=== PATIENT | female | born 1945 | race Caucasian/White ===

== ENCOUNTER → 2017-08-16 | Outpatient (CLI) | payer MEDICARE, OTHER | LOC: LAB SHORT 15:50 → LAB 15:50 | PROVIDERS: Hospitalist | DX: Z12.4 Encounter for screening for malignant neoplasm of cervix (principal) | CPT/HCPCS: G0145 ==

== ENCOUNTER 2017-11-08 06:52 | Day surgery (SDC) | payer MEDICARE, OTHER ==
[~2017-11-08] VITALS: Ht 165.1 cm; Wt 66.7 kg
[2017-11-08] MEDS ORDERED: LEVSOD125 PO (07:29)
[2017-11-08] MEDS ORDERED: ROSU5 PO (07:30)
[2017-11-08] MEDS ORDERED: RANI150EL (07:30)
[2017-11-08] MEDS ORDERED: Elmiron100 MG (07:30)
== END 2017-11-08 08:52 | disposition home or self-care (01) ==
LOC: ORSCSDS 06:52
PROVIDERS: Student in an Organized Health Care Education/Training Program
PROC: 0DB68ZX Excision of Stomach, Via Natural or Artificial Opening Endoscopic, Diagnostic (ICD-10-PCS; principal; 2017-11-08 08:00)
PROC: 0DB58ZX Excision of Esophagus, Via Natural or Artificial Opening Endoscopic, Diagnostic (ICD-10-PCS; principal; 2017-11-08 08:00)
DX: K21.9 Gastro-esophageal reflux disease without esophagitis (principal); K31.7 Polyp of stomach and duodenum; K29.70 Gastritis, unspecified, without bleeding; K44.9 Diaphragmatic hernia without obstruction or gangrene; R13.10 Dysphagia, unspecified; E03.9 Hypothyroidism, unspecified; E78.5 Hyperlipidemia, unspecified; Z87.891 Personal history of nicotine dependence; M79.7 Fibromyalgia; Z79.899 Other long term (current) drug therapy
CPT/HCPCS: 88305; 88342; J0330; J1980; J2405; J7120

== ENCOUNTER 2019-12-11 08:41 | Day surgery (SDC) | payer MEDICARE, OTHER ==
[~2019-12-11] VITALS: Ht 165.1 cm; Wt 68.5 kg
[~2019-12-11 08:41] MED LIST: ESTRADIOL0.5 MG PO; Elmiron100 MG; FENO145 PO; FLONASE ALLERG9.9 M2; LEVO-T100 MCG PO; LEVSOD125 PO; RANI150EL; ROSU5 PO
--- NOTE | 2019-12-11 10:05 | NUR ---
12/11/19 Jacklyn Lorenz SIMETHICONE USED DURING PROCEDURE.
== END 2019-12-11 11:00 | disposition home or self-care (01) ==
LOC: ORSCSDS 08:41
PROVIDERS: Student in an Organized Health Care Education/Training Program
PROC: 0DBH8ZX Excision of Cecum, Via Natural or Artificial Opening Endoscopic, Diagnostic (ICD-10-PCS; principal; 2019-12-11 10:00)
PROC: 0DBN8ZX Excision of Sigmoid Colon, Via Natural or Artificial Opening Endoscopic, Diagnostic (ICD-10-PCS; principal; 2019-12-11 10:00)
DX: Z12.11 Encounter for screening for malignant neoplasm of colon (principal); Z86.010 Personal history of colon polyps; D12.0 Benign neoplasm of cecum; K64.4 Residual hemorrhoidal skin tags; E03.9 Hypothyroidism, unspecified; E78.5 Hyperlipidemia, unspecified; Z79.899 Other long term (current) drug therapy
CPT/HCPCS: 88305; J0461; J2405; J2704; J7120

== ENCOUNTER 2020-07-07 06:28 | Day surgery (SDC) | payer MEDICARE, OTHER ==
[~2020-07-07] VITALS: Ht 165.1 cm; Wt 69.8 kg
--- NOTE | 2020-07-07 06:52 | NUR ---
07/07/20 0652 Radha Minaya TETRACAIN DROP PLACED IN LEFT EYE BY [email or web address] AT 0640 PLEDGET PLACED IN LEFT EYE BY [email or web address] AT 0648
== END 2020-07-07 08:05 | disposition home or self-care (01) ==
LOC: ORSCSDS 06:28
PROVIDERS: Ophthalmology
PROC: 08RK3JZ Replacement of Left Lens with Synthetic Substitute, Percutaneous Approach (ICD-10-PCS; principal; 2020-07-07 07:30)
DX: H25.12 Age-related nuclear cataract, left eye (principal); E03.9 Hypothyroidism, unspecified; Z79.899 Other long term (current) drug therapy
CPT/HCPCS: J2001; J2250; J3010; J3301; J7040; V2632

== ENCOUNTER 2020-07-28 06:17 | Day surgery (SDC) | payer MEDICARE, OTHER ==
[~2020-07-28] VITALS: Ht 165.1 cm; Wt 68.7 kg
[2020-07-28] MEDS ORDERED: FLUT.05NI (06:35)
--- NOTE | 2020-07-28 09:11 | NUR ---
07/28/20 0911 Zoila Thorne TETRACAINE DROP IN AT 0629; PLEDGET IN AT 0671
== END 2020-07-28 08:00 | disposition home or self-care (01) ==
LOC: ORSCSDS 06:17
PROVIDERS: Ophthalmology
PROC: 08RJ3JZ Replacement of Right Lens with Synthetic Substitute, Percutaneous Approach (ICD-10-PCS; principal; 2020-07-28 07:30)
DX: H25.11 Age-related nuclear cataract, right eye (principal); E03.9 Hypothyroidism, unspecified; E78.00 Pure hypercholesterolemia, unspecified; Z79.899 Other long term (current) drug therapy
CPT/HCPCS: A9270; J2001; J2250; J2704; J3010; J3301; J7040; J7120; V2632

== ENCOUNTER → 2020-10-12 | Outpatient (CLI) | payer MEDICARE, OTHER ==
[~2020-10-12] MED LIST changes: +FLUT.05NI
[2020-10-12 15:26] LABS: Free Thyroxine 1.57 ng/dL (0.70-1.60); Thyroid Stimulating Hormone 0.619 uIU/mL (0.360-4.800)
[2020-10-12 15:35] LABS: Ferritin, Serum 121 ng/mL (8-252)
== END | disposition home or self-care (01) ==
LOC: LAB 10:40 → LAB SHORT 10:40
PROVIDERS: Dermatology; Hospitalist
DX: E03.9 Hypothyroidism, unspecified (principal)
CPT/HCPCS: 82607; 82728; 84439; 84443

== ENCOUNTER 2022-11-11 01:04 | Emergency (ER) | payer MEDICARE, OTHER ==
[~2022-11-11] VITALS: Ht 162.6 cm; Wt 70.8 kg
[2022-11-11 01:42] VITALS: BP 133/80
[2022-11-11] MEDS ORDERED: IBUP400 PO (06:17)
[2022-11-11] MEDS ORDERED: CYCL10 PO (06:17)
== END 2022-11-11 06:33 | disposition home or self-care (01) ==
LOC: ER 01:04
DX: R07.81 Pleurodynia (principal); Z88.1 Allergy status to other antibiotic agents; Z79.899 Other long term (current) drug therapy; W10.9XXA Fall (on) (from) unspecified stairs and steps, initial encounter
CPT/HCPCS: 71046; 71100; 96372; 99284-25; A9270; J1885